=== PATIENT | male | born 1985 | race African-American/Black ===

== ENCOUNTER 2016-08-10 16:02 | Day surgery (SDC) | payer SELFPAY ==
[~2016-08-10] VITALS: Ht 185.4 cm; Wt 135.0 kg
[~2016-08-10 16:02] MED LIST: ONDANSETRON HCL 4 MG/2 ML VIAL IV PUSH ONE; PHENYLEPH/NS 1000 MCG/10 ML SYR IV ONE; PROPOFOL 200 MG/20 ML AMP IV ONE; Z.0.NO CURRENT MEDS
[2016-08-10] MEDS ORDERED: AMOX500C PO (17:03)
[2016-08-10] MEDS ORDERED: TRAM50TA PO (17:03)
[2016-08-10] MEDS ORDERED: MULTTAB67 PO (17:03)
[2016-08-10 17:12] VITALS: BP 125/67; PULSE 77; RESP 16; TEMP 98.4; O2SAT 99
[2016-08-10 17:42] LABS: AUTOMATED NEUTROPHIL # 3.9 TH/MM3 (1.8-7.7); BASOPHIL % 0.6 % (0.0-2.0); EOSINOPHIL # 0.1 TH/MM3 (0-0.4); EOSINOPHIL % 1.3 % (0.0-4.0); HEMO FLAGS DIFF FINAL; LYMPH % 33.5 % (9.0-44.0); LYMPHOCYTE # 2.4 TH/MM3 (1.0-4.8); MEAN CELL VOLUME 83.1 FL (80.0-100.0); MEAN CORPUSCULAR HGB CONC 32.4 % (32.0-36.0); MONO % 11.1 % (0.0-8.0); NEUT % 53.5 % (16.0-70.0); PLATELET COUNT 377 TH/MM3 (150-450); RED BLOOD COUNT 4.45 MIL/MM3 (4.50-5.90); RED CELL DISTRIBUTION WIDTH 13.3 % (11.6-17.2); WHITE BLOOD COUNT 7.2 TH/MM3 (4.0-11.0)
[2016-08-10] MEDS ORDERED: fentaNYL CITRATE 250 MCG/5 ML AMP ONE (19:27)
[2016-08-10] MEDS ORDERED: *MEPERIDINE 25 MG INJ VIAL PERIprocedural Use ONLY ONE (19:27)
[2016-08-10] MEDS ORDERED: *morphine SULFATE 8 MG/ML PERIprocedure ONLY ONE ×2 (19:43→20:03)
[2016-08-10] MEDS ORDERED: OXYC1TAB63 PO (20:31)
[2016-08-10] MEDS ORDERED: oxyCODONE/ACETAMINOPHEN 5 MG/325 MG TAB ONE (20:36)
[2016-08-10 21:00] VITALS: BP 133/70; PULSE 76; RESP 16; TEMP 97.7; O2SAT 90
--- NOTE | 2016-08-18 12:45 | MP ---
cc: LUIGI SEGOVIA M.D. DATE OF SURGERY August 10, 2016 PREOPERATIVE DIAGNOSIS Rectal abscess. PROCEDURE Exam under anesthesia with drainage of posterior rectal abscess with fistulotomy. POSTOPERATIVE DIAGNOSIS Rectal abscess. SURGEON Dr. Segovia PROCEDURE The patient was placed in the supine position. After adequate general anesthesia, his legs were placed in the [place] stirrups and supported appropriately. The perineum was then prepped with Betadine solution and draped in the usual sterile fashion. Examination revealed a external opening in the posterior midline which was draining copious amounts of purulent fluid. 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 This connected to the external opening identifying the fistula. Electrocautery was used to open the fistulous tract along the midline, entering a cavity full of a large amount of purulent fluid and granulation tissue. Additional hemorrhoid tissue was dissected off the lateral nielson of the cavity and hemostasis achieved with electrocautery. The cavity was irrigated and hemostasis achieved with electrocautery. No further fistulous tracts or extensions of the abscess were identified. After adequate debridement and hemostasis, the cavity was packed loosely with Surgicel dressing and a large fluff dressing externally. The patient tolerated the procedure quite well and was brought to the recovery room in stable condition. Sponge and needle counts were correct at the end of procedure. MD IGGY Moreau/SSB /11:31 PM /12:39 PM
== END 2016-08-10 22:00 | disposition home or self-care (01) ==
LOC: HOR 16:02
PROVIDERS: ATTEND Colon & Rectal Surgery
DX: K61.1 Rectal abscess (principal)
CPT/HCPCS: 00902; 46270; 85025; J2175; J2270; J2370; J2405; J3010